=== PATIENT | female | born 1990 ===

== ENCOUNTER 2017-10-02 14:35 | Emergency (ER) | payer OTHER ==
[2017-10-02 14:45] VITALS: RESP 20; TEMP 97.6
[2017-10-02 15:00] LABS: APPEARANCE,URINE Clear; BILIRUBIN,URINE NEGATIVE (NEGATIVE); COLOR,URINE Yellow; GLUCOSE, URINE (UA) 1+ (NEGATIVE); KETONES,URINE TRACE (NEGATIVE); LEUKOCYTE ESTERASE ,URINE TRACE (NEGATIVE); NITRATE,URINE NEGATIVE (NEGATIVE); OCCULT BLOOD,URINE NEGATIVE (NEG-TRACE); UROBILINOGEN,URINE 0.2 (0.2-1.0 EU)
[2017-10-02 15:13] LABS: RBC,URINE 0-2 (0-3AV/HPF); WBC,URINE 0-2 (0-5AV/HPF)
[2017-10-02 15:14] LABS: METHADONE NEGATIVE (NEGATIVE); TRICYCLIC ANTIDEPRESSANTS NEGATIVE (NEGATIVE)
[2017-10-02 15:15] LABS: AMPHETAMINES NEGATIVE (NEGATIVE); OPIATES(OP13) NEGATIVE (NEGATIVE); OXYCODONE(OXY) NEGATIVE (NEGATIVE); PROPOXYPHENE(PPX) NEGATIVE (NEGATIVE)
[2017-10-02 15:16] LABS: ALBUMIN 2.7 gm/dl (3.4-5.0); ALT 11 IU/L (14-63); CALCIUM 8.3 mg/dl (8.5-10.1); GLOM FILT RATE 120 mL/min (>60); POTASSIUM 3.9 mMol/L (3.5-5.1); SODIUM 140 mMol/L (136-145)
[2017-10-02 15:17] LABS: BASOPHILS % (AUTO) 1 % (0-3); EOSINOPHILS % (AUTO) 2 % (0-9); HEMATOCRIT 32 % (35-47); MEAN CORPUSCULAR HGB CONC 34.1 gm/dl (32.0-36.0); MEAN CORPUSCULAR VOLUME 83 fL (81-99); MONOCYTES % (AUTO) 5.4 % (0-12); NEUTROPHILS % (AUTO) 76.6 % (37-80)
[2017-10-02 15:33] VITALS: O2SAT 98
[2017-10-02 17:03] VITALS: BP 136/90; PULSE 99
== END 2017-10-02 17:09 | disposition home or self-care (01) ==
LOC: ED 14:35
DX: O09.73 Supervision of high risk pregnancy due to social problems, third trimester (principal); Z3A.32 32 weeks gestation of pregnancy; F11.21 Opioid dependence, in remission; F12.21 Cannabis dependence, in remission; J06.9 Acute upper respiratory infection, unspecified
CPT/HCPCS: 36415; 80053; 80305; 80307; 81001; 84443; 85025; 87088; 87804; 99283